=== PATIENT | male | born 1970 | race Caucasian/White ===

== ENCOUNTER 2024-06-15 10:52 | Outpatient (RCR) | payer MEDICARE, MEDICAID, SELFPAY ==
--- NOTE | 2024-06-15 11:54 | OPREHPOC ---
Outpatient Therapy Plan of Care This is a Multidisciplinary Plan of Care that may contain components documented by all disciplines (PT, OT, and ST.) PT Problem 1 PT Problem #1 Knowledge Deficit PT Goal 1 Goal / Goal Update 1. independent and compliant with HEP Target Visit 6 PT Problem 2 PT Problem #2 Pain PT Goal 1 Goal / Goal Update 1. 2/10 pain or less at worst in the bilateral UT' s/neck Target Visit 12 PT Problem 3 PT Problem #3 Impaired Range of Motion PT Goal 1 Goal / Goal Update 1. 35 degrees bilateral cervical active side bending 2. 70 degrees or better bilateral active cervical rotation Target Visit 12 PT Problem 4 PT Problem #4 Impaired Strength PT Goal 1 Goal / Goal Update 1. 5/5 bilateral shoulder strength 2. 4+/5 or better deep neck flexor strength Target Visit 12 PT Problem 5 PT Problem #5 Impaired Functional Mobility PT Goal 1 Goal / Goal Update 1. NDI to display less than 12% functional deficits 2. quick dash to display less than 10% functional deficits 3. improve postural awareness when at rest, and when using phone to decrease strain on neck and shoulders Target Visit 12
--- NOTE | 2024-06-15 11:54 | PTOPEVAL1 ---
Assessment and note entered by JT File, PT Evaluation Information ICD-10 Condition Codes (PT) Cervicalgia M54.2 Onset 05/31/2024 Subjective Information patient reports he has had pain in the neck and tightness in the neck and shoulder for several years. he reports this is mainly in the UT's bilaterally. he reports he did injure his L shoulder years ago and reports he went to chiropractic at one point that helped a bit. he reports he has increased pain and tightness when trying to play his drums. he reports he has been playing for years and shoveling. he reports the R side is worse than the L. he reports he did have some xrays some years back, but nothing recent. Reported Pain Level Pain Score 3: Self Report Assessment PT Clinical Summary mr. knight is a pleasant 53 yo man who presents to skilled outpatient PT for evaluation and treatment of bilateral UT and neck pain. he presents this date with R more than L side UT tightness, decreased cervical rom, decreased cervical strength, and poor posture. he is complicated by poor vision, and having to adjust his posture to see his phone that makes his posture more susceptible to pain in the neck and shoulders. continued skilled outpatient PT is indicated to improve his objective/functional deficits and return to his prior level functional activity performance/quality of life. Plan of Care Interventions Electrical Stimulation,Hot Pack/Cold Pack,Manual Therapy,Mechanical Traction,Neuro Re-education, Patient/Caregiver Education,Therapeutic Activities ,Therapeutic Exercise PT Services Indicated Yes Treatment Frequency and 3x weekly for 12 visits Duration These treatments will address the objective and functional deficits as defined above. The patient will be advanced safely and appropriately in order for the patient to progress towards his/her prior level of function. Additional exercises will be introduced and as well as a comprehensive home exercise program upon discharge, if needed, ?to ensure carryover of functional gains achieved in the clinic. This treatment plan has been reviewed and agreement upon by the patient.
--- NOTE | 2024-07-06 13:56 | OPREHPOC ---
Outpatient Therapy Plan of Care This is a Multidisciplinary Plan of Care that may contain components documented by all disciplines (PT, OT, and ST.) PT Problem 1 PT Problem #1 Knowledge Deficit PT Goal 1 Goal / Goal Update 1. independent and compliant with HEP Target Visit 6 Progress Met PT Problem 2 PT Problem #2 Pain PT Goal 1 Goal / Goal Update 1. 2/10 pain or less at worst in the bilateral UT' s/neck Target Visit 12 Progress Met PT Problem 3 PT Problem #3 Impaired Range of Motion PT Goal 1 Goal / Goal Update 1. 35 degrees bilateral cervical active side bending. partially met 2. 70 degrees or better bilateral active cervical rotation. not met Target Visit 12 Progress Not Met PT Problem 4 PT Problem #4 Impaired Strength PT Goal 1 Goal / Goal Update 1. 5/5 bilateral shoulder strength. met 2. 4+/5 or better deep neck flexor strength. met Target Visit 12 Progress Met PT Problem 5 PT Problem #5 Impaired Functional Mobility PT Goal 1 Goal / Goal Update 1. NDI to display less than 12% functional deficits 2. quick dash to display less than 10% functional deficits 3. improve postural awareness when at rest, and when using phone to decrease strain on neck and shoulders Target Visit 12 Progress Not Met
--- NOTE | 2024-07-06 13:57 | PTOPPROG ---
Assessment and note entered by JT File, PT Evaluation Information Assessment Status Progress ICD-10 Condition Codes (PT) Cervicalgia M54.2 Onset 05/31/2024 Subjective Information patient reports he feels pretty good today. he reports the pain has decreased quite a bit in the neck. he reports he did flare it up a bit last week when lifting one of his family members. Assessment PT Clinical Summary mr. knight presents to skilled PT for his 10th skilled PT visit. he displays improved bilateral UE strength and deep neck flexor strength today. he still lacks cervical rom to achieve his goals, and is still limited functionally. continued skilled PT is indicated to improve his objective/ functional deficits and achieve his goals to improve his quality of life and return to prior level functional activity performance. Plan of Care Interventions Electrical Stimulation,Hot Pack/Cold Pack,Manual Therapy,Mechanical Traction,Neuro Re-education, Patient/Caregiver Education,Therapeutic Activities ,Therapeutic Exercise PT Services Indicated Yes Treatment Frequency and continue per initial POC Duration These treatments will address the objective and functional deficits as defined above. The patient will be advanced safely and appropriately in order for the patient to progress towards his/her prior level of function. Additional exercises will be introduced and as well as a comprehensive home exercise program upon discharge, if needed, ?to ensure carryover of functional gains achieved in the clinic. This treatment plan has been reviewed and agreement upon by the patient.
== END 2024-07-11 20:20 | disposition home or self-care (01) ==
LOC: CHSPT 10:52
PROVIDERS: PCP Family Medicine; Visit Provider Family Medicine
DX: M54.2 Cervicalgia (principal)
CPT/HCPCS: 97014; 97110; 97140; 97161; G0283

== ENCOUNTER 2024-09-19 20:29 | Emergency (ER) | payer MEDICARE, MEDICAID, SELFPAY ==
[2024-09-19 20:31] VITALS: BP 153/82; PULSE 78; RESP 18; TEMP 36; O2SAT 97
--- OUTSIDE RECORDS SUMMARY | 2024-09-19 20:32 | XMS_ITS | Continuity of Care Document ---
Author Organization [employer] [facility] [place] [address] Zhao [address] [place] [phone] Phone Care Team Providers Care Ophthalmology Surgical Technician Name Role Phone Durand Amos Unavailable Unavailable Procedures Procedure Date Eye Exam Established Pt Ophthalmoscopy, Subsequent Ophthalmoscopy, Subsequent Special Reports Or Forms Eye Exam Established Pt Ophthalmoscopy, Subsequent Eye Exam Established Pt Ophthalmoscopy, Subsequent Post-op Follow-up Visit Ophthalmoscopy, Subsequent Eye Exam & Treatment Ophthalmoscopy, Subsequent Optic Nerve Topography After Cataract Laser Surgery Ophthalmoscopy, Subsequent Eye Exam & Treatment Ophthalmoscopy, Subsequent Eye Exam Established Pt Ophthalmoscopy, Subsequent Eye Exam & Treatment Ophthalmoscopy, Subsequent Eye Exam & Treatment Ophthalmoscopy, Subsequent Eye Exam Established Pt Ophthalmoscopy, Subsequent Eye Exam Established Pt Ophthalmoscopy, Subsequent Eye Exam Established Pt Ophthalmoscopy, Subsequent Ophthalmoscopy, Subsequent Post-op Follow-up Visit Ophthalmoscopy, Subsequent Eye Exam Established Pt Ophthalmoscopy, Subsequent Post-op Follow-up Visit Ophthalmoscopy, Subsequent Post-op Follow-up Visit Ophthalmoscopy, Subsequent Post-op Follow-up Visit Ophthalmoscopy, Subsequent Post-op Follow-up Visit Ophthalmoscopy, Subsequent Post-op Follow-up Visit Ophthalmoscopy, Subsequent Office Consultation Ophthalmoscopy Ophthalmoscopy Optic Nerve Topography Office/outpatient Visit, Est Fundus Photography W/ Report Office/outpatient Visit, New Advance Directives Directive Yes / No Effective Date File Name No Information Encounters Encounter Description Practice Location Reason(s) For Visit Diagnoses Date Provider Providers Copied on Encounter [facility], [address] [place] [address] [address], [place], [place], [id number], tel:[phone] [facility] [place] No Information Sep-0 9-201 0 Kizzy Trinidad. [address] [place], [address], [place]. tel:[phone] [facility], [address], [place], [place], [id number], [place] tel:[phone] [facility] [place] No Information Mar-2 6-201 0 Kizzy Trinidad. [address] [place], [address], [place]. tel:[phone] [facility], [address], [place], [place], [id number], [place] tel:[phone] [facility] [place] No Information Mar-1 1-201 0 Kizzy Trinidad. [address] [place], [address], [place]. tel:[phone] Referring Provider: Amos Elizabeth, [address] [place], [address]. tel:[phone] [facility], [address], [place], [place], [id number], [place] tel:[phone] [facility] [place] No Information 1-201 0 Kizzy Trinidad. [address] [place], [address], [place]. tel:[phone] [facility], [address], [place], [place], [id number], [place] tel:[phone] [facility] No Information 0 Kizzy Trinidad. [address] [place], [address], [place]. tel:[phone] Referring Provider: Amos Elizabeth, [address] [place], [address]. tel:[phone] [facility], [address], [place], [place], [id number], [place] tel:[phone] [facility] No Information 0 Kizzy Trinidad. [address] [place], [address], [place]. tel:[phone] Referring Provider: Amos Elizabeth, [address] [place], [address]. tel:[phone] [facility], [address], [place], [place], [id number], [place] tel:[phone] [facility] No Information 4-200 9 Kizzy Trinidad. [address] [place], [address], [place]. tel:[phone] Referring Provider: Amos Elizabeth, [address] [place], [address]. tel:[phone] [facility], [address], [place], [place], [address], [place] tel:[phone] [facility] No Information Dec-1 0-200 9 Kizzy Trinidad. [address] [place], [address], [place]. tel:[phone] Referring Provider: Amos Elizabeth, [address] [place], [address]. tel:[phone] [facility], [address], [place], [place], [id number], [place] tel:[phone] [facility] No Information Dec-0 3-200 9 Kizzy Trinidad. [address] [place], [address], [place]. tel:[phone] Referring Provider: Amos Elizabeth, [address] [place], [address]. tel:[phone] [facility], [address], [place], [place], [id number], [place] tel:[phone] [facility] No Information Nov-1 9-200 9 Kizzy Trinidad. [address] [place], [address], [place]. tel:[phone] Referring Provider: Amos Elizabeth, [address] [place], [address]. tel:[phone] [facility], [address], [place], [place], [address], [place] tel:[phone] [facility] No Information Nov-1 2-200 9 Kizzy Trinidad. [address] [place], [address], [place]. tel:[phone] Referring Provider: Amos Elizabeth, [address] [place], [address]. tel:[phone] [facility], [address], [place], [place], [id number], [place] tel:[phone] [facility] No Information Oct-2 9-200 9 Kizzy Amos. [address] [place], [address], [place]. tel:[phone] Referring Provider: Amos Elizabeth, [address] [facility] [place], [address]. tel:[phone] [facility], [address], [place], [place], [address], [place] tel:[phone] [facility] No Information Oct-0 8-200 9 Kizzy Amos. [address] [place], [address], [place]. tel:[phone] Referring Provider: Amos Elizabeth, [address] [place], [address]. tel:[phone] [facility], [address], [place], [place], [id number], [place] tel:[phone] [facility] No Information Sep-2 4-200 9 Kizzy Trinidad. [address] [place], [address], [place]. tel:[phone] Referring Provider: Amos Elizabeth, [address] [place], [address]. tel:[phone] [facility], [address], [place], [place], [address], [place] tel:[phone] [facility] No Information Sep-1 7-200 9 Kizzy Trinidad. [address] [place], [address], [place]. tel:[phone] [facility], [address], [place], [place], [address], [place] tel:[phone] [facility] No Information Sep-1 0-200 9 Kizzy Trinidad. [address] [place], [address], [place]. tel:[phone] Referring Provider: Amos Elizabeth, [address] [place], [address]. tel:[phone] [facility], [address], [place], [place], [id number], [place] tel:[phone] [facility] No Information Sep-0 3-200 9 Kizzy Trinidad. [address] [place], [address], [place]. tel:[phone] Referring Provider: Amos Elizabeth, [address] [place], [address]. tel:[phone] [facility], [address], [place], [place], [id number], [place] tel:[phone] [facility] No Information Aug-2 0-200 9 Kizzy Trinidad. [address] [place], [address], [place]. tel:[phone] [facility], [address], [place], [place], [id number], [place] tel:[phone] [facility] No Information Aug-1 3-200 9 Kizzy Trinidad. [address] [place], [address], [place]. tel:[phone] [facility], [address], [place], [place], [address], [place] tel:[phone] [facility] No Information Aug-0 6-200 9 Kizzy Trinidad. [address] [place], [address], [place]. tel:[phone] Referring Provider: Amos Elizabeth, [address] [place], [address]. tel:[phone] [facility], [address], [place], [place], [id number], [place] tel:[phone] [facility] No Information Enoch-2 3-200 9 Kizzy Trinidad. [address] [place], [place], [facility], [place]. tel:[phone] Referring Provider: Amos Elizabeth, [address] [place], [place], [facility]. tel:[phone] Office Consultation [facility], [address] [place] [address] [address], [place], [place], [address], [place] tel:[phone] [facility] No Information 200 9 Kizzy Trinidad. [address] [place], [place], [facility], [place]. tel:[phone] Referring Provider: Berto alcantar, [facility] [address], [place], [place], [facility]. tel:[phone] Office/outpati ent Visit, [facility], [address], [place], [place], [id number], [place] tel:[phone] [facility] No Information 200 [address] [facility] [address], [place], [facility], [place]. tel:[phone] Referring Provider: Berto alcantar, [address], [place], [place], [facility]. tel:[phone] Office/outpati ent Visit, [facility], [address] [place] [address] [address], [place], [place], [address], [place] tel:[phone] [facility] No Information 0200 9 Krishnasamy Berto. [facility] [address], [place], [facility], [place]. tel:[phone] Referring Provider: Bipin Walden, [address] [place] [address], [address]. tel:[phone] Family History Family Member Type Diagnosis Age At Onset No Information Payers Payer name Insurance type Covered libertarian ID Authoriza tion(s) [place] [id number] Social History Type Description Quantity Date Captured Comments Sex Male Smoking Status No Information Chief Complaint And Reason For Visit No Information Reason For Referral Reason For Referral No Information History Of Present Illness Encounter Date Complaint History Of Prese nt Illness No Information Functional Status Date Functional Assessmen t No Information Instructions Date Instruction Additional Infor mation No Information Assessments Type Assessment Date No Information Patient Care Teams Name Effective Dates (start - stop) Status Members No Information
--- NOTE | 2024-09-19 20:49 | ED.GENADULT ---
HPI - General Adult General Chief complaint: Skin/Abscess/Foreign Body Stated complaint: skin issue Time Seen by Provider: 09/19/24 20:49 Source: patient and family Mode of arrival: ambulatory Limitations: no limitations History of Present Illness HPI narrative: 53 years old white male legally blind was taking a shower today felt a take like feeling at the right groin area. His was not able to squeeze it out and was not sure if it was a tick or something else. Patient denies any fever, chills, nausea, vomiting or any pain or soreness at that area Related Data Allergies Allergy/AdvReac Type Severity Reaction Status Date / Time Penicillins Allergy Swelling Verified 09/19/24 20:54 Review of Systems Review of Systems: All systems reviewed & are unremarkable except as noted in HPI and below Exam Narrative: General appearance: Well-developed, well-nourished Skin: Normal color, right groin area showing 2 mm subcutaneous dark red color no takes, a 18 gauge needle was used to open this tiny lesion and was just blood only. No pus, no other discharge except pure blood legally blind Vascular: Normal peripheral pulses, normal capillary refill. Musculoskeletal: Normal range of motion, nontender back Neurologic: Alert and oriented ?3, Course Vital Signs Vital signs: Vital Signs Temperature 36.0 C L 09/19/24 20:31 Pulse Rate 78 09/19/24 20:31 Respiratory Rate 18 09/19/24 20:31 Blood Pressure 153/82 H 09/19/24 20:31 Pulse Oximetry 97 09/19/24 20:31 Oxygen Delivery Room Air 09/19/24 20:31 Temperature 36.0 C L 09/19/24 20:31 Pulse Rate 78 09/19/24 20:31 Respiratory Rate 18 09/19/24 20:31 Blood Pressure 153/82 H 09/19/24 20:31 Pulse Oximetry 97 09/19/24 20:31 Oxygen Delivery Room Air 09/19/24 20:31 Medical Decision Making Vital Signs Vital Signs: Vital Signs Temperature 36.0 C L 09/19/24 20:31 Pulse Rate 78 09/19/24 20:31 Respiratory Rate 18 09/19/24 20:31 Blood Pressure 153/82 H 09/19/24 20:31 Pulse Oximetry 97 09/19/24 20:31 Oxygen Delivery Room Air 09/19/24 20:31 Temperature 36.0 C L 09/19/24 20:31 Pulse Rate 78 09/19/24 20:31 Respiratory Rate 18 09/19/24 20:31 Blood Pressure 153/82 H 09/19/24 20:31 Pulse Oximetry 97 09/19/24 20:31 Oxygen Delivery Room Air 09/19/24 20:31 Critical Care Time Critical Care Time Critical Care Time: No Discharge Plan Discharge Clinical Impression: Hematoma Patient Disposition: Home Condition: Stable Instructions: Hematoma (ED) Additional Instructions: Return if symptoms are worsening , call your family physician for appointment, take Tylenol as as needed for aches and pain, continue home medications. Topical Neosporin twice a day Patient Language: Indian Follow-up/Referrals: Bipin Walden MD [Primary Care Provider] -
[2024-09-19] MEDS: NEOMYCIN/POLYMYXIN/BACITRACIN OINTMENT PACKET 1 PACKET TOPICAL (20:50)
--- OUTSIDE RECORDS SUMMARY | 2024-09-19 20:57 | XMS_ITS | Clinical Summary ---
Author Organization [facility] Address [facility] [place] [address] Care Team Providers Care Fixture Maker Name Role Phone Unavailable Primary Care Provider Unavailabl e Social History Tobacco Use Types Packs/Day Years Used Date Smoking Tobacco: Never Sex and Gender Information Value Date Recorded Sex Assigned at Not on file Legal Sex Male 2:43 AM CDT Gender Identity Not on file Sexual Orientation Not on file Last Filed Vital Signs Vital Sign Reading Time Taken Comments Blood Pressure 138/81 03/18/2012 10:10 PM [employer] Pulse 77 03/18/2012 10:10 PM [employer] Temperature - - Respiratory Rate 20 03/18/2012 10:10 PM [employer] Oxygen Saturation - - Inhaled Oxygen Concentration - - Weight 72.6 kg (160 lb) 03/18/2012 10:10 PM [employer] Height 157.5 cm (5' 2) 03/18/2012 10:10 PM [employer] Body Mass Index 29.26 03/18/2012 10:10 PM [employer] Plan of Treatment Health Maintenance Due Date Last Done Comments Colorectal Cancer Screening Colonoscopy (10 Years) 1971 Annual Physical 09/28/1974 Hepatitis C 09/28/1989 DTaP, Tdap and Td Vaccines ( 1 - Tdap) 09/28/1990 Hepatitis B Vaccines (1 of 3 - 19+ 3-dose series) 09/28/1990 Pneumococcal Vaccine: 50+ Ye ars (1 of 1 - PCV) 09/28/2021 Zoster Vaccines (1 of 2) 09/28/2021 COVID-19 Vaccine ( - 2023-2 5 season) 2023 Meningococcal B Vaccine Aged Out No l onger eligible based on patient's age to complete this topic Meningococcal Vaccine Aged Out No yong angie eligible based on patient's age to complete this topic RSV Immunizations Under 20 Months Aged Out No longer eligible based on patient's age to complete this topic
--- OUTSIDE RECORDS SUMMARY | 2024-09-19 20:57 | XMS_ITS | Continuity of Care Document ---
Author Organization [employer] [facility] Address [address] [facility] [address] Zhao [address] [place] [id number] Phone Care Team Providers Care Planning Assistant Name Role Phone Durand Amos Unavailable Unavailable [...] Diagnoses Date Provider Providers Copied on Encounter formerly [facility], [address] [place] [address] [address], [place], [place], [id number], tel:[phone] [facility] [place] No Information Sep-0 9-201 0 Kizzy Trinidad. [address] [place], [address], [place]. tel:[phone] [facility], [address] [address], [place], [place], [id number], [place] tel:[phone] [facility] [place] No Information Mar-2 6-201 0 Kizzy Trinidad. [address] [place], [address], [place]. tel:[phone] [facility], [address] [address], [place], [place], [id number], [place] tel:[phone] [facility] [place] No Information Mar-1 1-201 0 Kizzy Trinidad. [address] [place], [address], [place]. tel:[phone] Referring Provider: Amos Elizabeth, [address] [place], [address]. tel:[phone] [facility], [address] [address], [place], [place], [id number], [place] tel:[phone] [facility] [place] No Information 1-201 0 Kizzy Trinidad. [address] [place], [address], [place]. tel:[phone] [facility], [address] [address], [place], [place], [id number], [place] tel:[phone] [facility] No Information 0 Kizzy Trinidad. [address] [place], [address], [place]. tel:[phone] Referring Provider: Amos Elizabeth, [address] [place], [address]. tel:[phone] [facility], [address] [address], [place], [place], [id number], [place] tel:[phone] [facility] No Information 0 Kizzy Trinidad. [address] [place], [address], [place]. tel:[phone] Referring Provider: Amos Elizabeth, [address] [place], [address]. tel:[phone] [facility], [address] [address], [place], [place], [id number], [place] tel:[phone] SEC [facility] No Information 4-200 9 Kizzy Trinidad. [address] [place], [address], [place]. tel:[phone] Referring Provider: Amos Elizabeth, [address] [place], [address]. tel:[phone] [facility], [address] [address], [place], [place], [address], [place] tel:[phone] SEC [facility] No Information Dec-1 0-200 9 Kizzy Trinidad. [address] [place], [address], [place]. tel:[phone] Referring Provider: Amos Elizabeth, [address] [place], [address]. tel:[phone] [facility], [address] [address], [place], [place], [id number], [place] tel:[phone] [facility] No Information Dec-0 3-200 9 Kizzy Trinidad. [address] [place], [address], [place]. tel:[phone] Referring Provider: Amos Elizabeth, [address] [place], [address]. tel:[phone] [facility], [address] [address], [place], [place], [id number], [place] tel:[phone] [facility] No Information Nov-1 9-200 9 Kizzy Trinidad. [address] [place], [address], [place]. tel:[phone] Referring Provider: Amos Elizabeth, [address] [place], [address]. tel:[phone] [facility], [address] [address], [place], [place], [id number], [place] tel:[phone] [facility] No Information Nov-1 2-200 9 Kizzy Trinidad. [address] [place], [address], [place]. tel:[phone] Referring Provider: Amos Elizabeth, [address] [place], [address]. tel:[phone] [facility], [address] [address], [place], [place], [address], [place] tel:[phone] [facility] No Information Oct-2 9-200 9 Kizzy Amos. [address] [place], [address], [place]. tel:[phone] Referring Provider: Amos Elizabeth, [address] [facility] [place], [address]. tel:[phone] [facility], [address] [address], [place], [place], [address], [place] tel:[phone] [facility] No Information Oct-0 8-200 9 Kizzy Amos. [address] [place], [address], [place]. tel:[phone] Referring Provider: Amos Elizabeth, [address] [place], [address]. tel:[phone] [facility], [address] [address], [place], [place], [address], [place] tel:[phone] [facility] No Information Sep-2 4-200 9 Kizzy Trinidad. [address] [place], [address], [place]. tel:[phone] Referring Provider: Amos Elizabeth, [address] [place], [address]. tel:[phone] [facility], [address] [address], [place], [place], [address], [place] tel:[phone] [facility] No Information Sep-1 7-200 9 Kizzy Trinidad. [address] [place], [address], [place]. tel:[phone] [facility], [address] [address], [place], [place], [address], [place] tel:[phone] [facility] No Information Sep-1 0-200 9 Kizzy Trinidad. [address] [place], [address], [place]. tel:[phone] Referring Provider: Amos Elizabeth, [address] [place], [address]. tel:[phone] [facility], [address] [address], [place], [place], [address], [place] tel:[phone] [facility] No Information Sep-0 3-200 9 Kizzy Trinidad. [address] [place], [address], [place]. tel:[phone] Referring Provider: Amos Elizabeth, [address] [place], [address]. tel:[phone] [facility], [address] [address], [place], [place], [address], [place] tel:[phone] [facility] No Information Aug-2 0-200 9 Kizzy Trinidad. [address] [place], [address], [place]. tel:[phone] [facility], [address] [address], [place], [place], [address], [place] tel:[phone] [facility] No Information Aug-1 3-200 9 Kizzy Trinidad. [address] [place], [address], [place]. tel:[phone] [facility], [address] [address], [place], [place], [address], [place] tel:[phone] [facility] No Information Aug-0 6-200 9 Kizzy Trinidad. [address] [place], [address], [place]. tel:[phone] Referring Provider: Amos Elizabeth, [address] [place], [address]. tel:[phone] [facility], [address] [address], [place], [place], [address], [place] tel:[phone] [facility] No Information Enoch-2 3-200 9 Kizzy Trinidad. [address] [place], [place], [facility], [place]. tel:[phone] Referring Provider: Amos Elizabeth, [address] [place], [facility]. tel:[phone] Office Consultation [facility], [id number] [place] [address] [address], [place], [place], [address], [place] tel:[phone] [facility] No Information 200 9 Kizzy Trinidad. [address] [place], [place], [facility], [place]. tel:[phone] Referring Provider: Berto alcantar, [facility] [address], [place], [place], [facility]. tel:[phone] Office/outpati ent Visit, [facility] [address] [address], [place], [place], [address], [place] tel:[phone] [facility] No Information 200 9 Krishnasamy Berto. [facility] [address], [place], [facility], [place]. tel:[phone] Referring Provider: Berto alcantar, [address], [place], [place], [facility]. tel:[phone] Office/outpati ent Visit, [facility], [address] [place] [address] [address], [place], [place], [address], [place] tel:[phone] [facility] No Information [address] Krishnasamy Berto. [facility] [address], [place], [facility], [place]. tel:[phone] Referring Provider: Bipin Walden, [address] [place] [address], [address]. tel:[phone] Family History Family Member Type Diagnosis Age At Onset No Information Payers Payer name Insurance type Covered constitution party ID Authoriza tion(s) [place] [id number] Social History Type Description Quantity Date Captured [...]
== END 2024-09-19 21:02 | disposition home or self-care (01) ==
LOC: CHSED 20:56
PROVIDERS: Emergency Provider Emergency Medicine; PCP Family Medicine
DX: S30.1XXA Contusion of abdominal wall, initial encounter (principal); X58.XXXA Exposure to other specified factors, initial encounter
CPT/HCPCS: 99282